=== PATIENT | female | born 1985 | race Caucasian/White ===

== ENCOUNTER 2017-08-02 12:39 | Emergency (ER) | payer OTHER ==
[~2017-08-02] VITALS: Ht 162.6 cm; Wt 63.0 kg
[~2017-08-02 12:39] MED LIST: FLUO20CA35 PO
[2017-08-02 12:50] VITALS: Ht 162.6 cm; Wt 63.0 kg
--- NOTE | 2017-08-02 13:35 | DIAGNOSTIC IMAGING REPORT ---
RIGHT THUMB 3 VIEWS CLINICAL HISTORY: Right thumb injury. FINDINGS: 3 views of the right thumb are obtained. No prior studies are available for comparison at the time of dictation. The skeletal structures are well mineralized. No fracture is seen. The first metacarpophalangeal and interphalangeal joints are maintained. The overlying soft tissues are within normal limits. IMPRESSION: Unremarkable radiographic assessment of the right thumb. Electronically signed by: Joesph Gabriel M.D. 08/02/2017 1:33 PM Dictated Date/Time: 08/02/2017 1:31 PM [facility]
--- NOTE | 2017-08-02 13:52 | EMERGENCY ROOM VISIT NOTE ---
History First contact with patient: 12:52 Chief Complaint: FINGER PAIN Stated Complaint: DISLOCATED THUMB, EXTREME PAIN History of Present Illness The patient is a 31 year old female who presents to the Emergency Room with complaints of an injury to her right thumb. The patient states that she fell last night and believes she dislocated her right thumb. She states that initially, the thumb was pointing in an unusual direction. She states that her boyfriend was able to put the thumb back in place. She has had persistent pain since then. She has had swelling and difficulty moving the thumb. She rates her discomfort an 8/10. She denies any numbness or weakness. She denies any other injuries. Review of Systems A complete 6 point review of systems was reviewed with the patient with pertinent positives and negatives as per history of present illness. All else were negative. Past Medical/Surgical History Medical Problems: (1) No significant active problems Social History Smoking Status: Current Every Day Smoker Drug Use: none Current/Historical Medications Scheduled Fluoxetine (Prozac), 60 MG PO QPM Physical Exam Vital Signs Date Time Temp Pulse Resp B/P (MAP) Pulse Ox O2 Delivery O2 Flow Rate FiO2 08/02/17 14:20 37.0 68 18 102/82 98 08/02/17 14:00 68 18 102/82 98 Room Air 08/02/17 12:50 37.0 81 18 128/89 98 Room Air Physical Exam VITALS: Vitals are noted on the nurse's note and reviewed by myself. Vital signs stable. GENERAL: This is a 31-year-old female, in no acute distress, nondiaphoretic, well-developed well-nourished. SKIN: No abrasions or lacerations MUSCULOSKELETAL: There is mild ecchymosis and swelling to the right first MCP. Decreased range of motion of the right thumb. NEURO: Patient was alert and oriented to person place and time. Normal sensation. Medical Decision & Procedures ER Provider Diagnostic Interpretation: RIGHT THUMB 3 VIEWS CLINICAL HISTORY: Right thumb injury. FINDINGS: 3 views of the right thumb are obtained. No prior studies are available for comparison at the time of dictation. The skeletal structures are well mineralized. No fracture is seen. The first metacarpophalangeal and interphalangeal joints are maintained. The overlying soft tissues are within normal limits. IMPRESSION: Unremarkable radiographic assessment of the right thumb. Medical Decision Differential diagnosis includes fracture, contusion, dislocation, sprain, among others. The patient was evaluated as above. X-ray of the right thumb was obtained and reviewed by radiology and showed no acute findings. Patient likely did dislocate her from yesterday, however it has been fully reduced. It is difficult to evaluate for tendon injury as the patient has decreased range of motion which seems to be secondary to swelling and pain. I did recommend that the patient follow-up with orthopedics if she has persistent difficulty moving the finger. She was placed in a metal finger splint and conservative measures were discussed. She verbalized understanding of my assessment and treatment plan and was discharged home in good condition. Medication Reconcilliation Current Medication List: was personally reviewed by me Blood Pressure Screening Patient's blood pressure: Normal blood pressure Impression Primary Impression: Injury of right thumb Departure Information Dispostion Home / Self-Care Condition GOOD Referrals Gabriel Wallace M.D. (PCP) Carson Rolle MD Patient Instructions My [facility] Additional Instructions You have been treated in the Emergency Department for a finger injury. For pain control, you can use the following [id number] medicines (if >12 yo): - Regular strength (325mg/tab) Tylenol (acetaminophen) 2 tabs every 4-6 hours as needed. Do not exceed 12 tablets in a 24 hour period. Avoid taking more than 4 grams (4000 mg) of Tylenol per day. This includes any other sources of acetaminophen you may take on a regular basis. - Regular strength (200 mg/tab) Advil (ibuprofen) 1-2 tabs every 4-6 hours as needed. Do not exceed a dose of 3200 mg per day. If this is a recent injury (<24 hrs), ice can be applied to the area of pain for the first 3 days to help decrease pain and inflammation. Wear the metal finger splint for the next 3-4 days or as needed for pain in the finger. If you have persistent difficulty moving the thumb, you should follow-up with Dr. Rolle, the hand surgeon for further evaluation of possible tendon injury. Return to the Emergency Department if your current symptoms worsen despite treatment course outlined above, or if you develop any of the following symptoms : intractable pain despite aforementioned treatment course or new onset of numbness or tingling of the fingers. Problem Qualifiers Primary Impression: Injury of right thumb Encounter type: initial encounter Qualified Codes: S69.91XA - Unspecified injury of right wrist, hand and finger(s), initial encounter
[2017-08-02 14:20] VITALS: BP 102/82; PULSE 68; TEMP 37; O2SAT 98
== END 2017-08-02 14:20 | disposition home or self-care (01) ==
LOC: C.EDB 12:40 → C.EDD 14:20
DX: S69.91XA Unspecified injury of right wrist, hand and finger(s), initial encounter (principal); Z79.899 Other long term (current) drug therapy; F17.200 Nicotine dependence, unspecified, uncomplicated; W19.XXXA Unspecified fall, initial encounter

== ENCOUNTER 2017-08-07 10:38 | Emergency (ER) | payer OTHER ==
[~2017-08-07] VITALS: Ht 162.6 cm; Wt 63.8 kg
[2017-08-07 10:43] VITALS: Ht 162.6 cm; Wt 63.8 kg
[2017-08-07] MEDS ORDERED: CLON0.5T3 PO (11:10)
--- NOTE | 2017-08-07 11:16 | DIAGNOSTIC IMAGING REPORT ---
R FINGER(S) MIN 2 VIEWS ROUTINE CLINICAL HISTORY: R thumb reinjury COMPARISON: Right thumb radiographs August 02, 2017. FINDINGS: Alignment of the right thumb is anatomic. No fracture or lesion is present. No erosions are identified. Joint spaces are preserved. IMPRESSION: No acute fracture or dislocation of the right thumb. Electronically signed by: Gera Quinones M.D. 08/07/2017 11:15 AM Dictated Date/Time: 08/07/2017 11:14 AM
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
[2017-08-07 11:36] VITALS: BP 122/73; PULSE 63; TEMP 36.6; O2SAT 100
== END 2017-08-07 11:20 | disposition home or self-care (01) ==
LOC: C.EDB 10:39 → C.EDD 11:20
DX: S63.641A Sprain of metacarpophalangeal joint of right thumb, initial encounter (principal); W22.8XXA Striking against or struck by other objects, initial encounter; Y93.89 Activity, other specified; Y99.8 Other external cause status; F17.200 Nicotine dependence, unspecified, uncomplicated

== ENCOUNTER 2017-08-13 09:31 | Emergency (ER) | payer OTHER ==
[~2017-08-13] VITALS: Ht 162.6 cm; Wt 62.7 kg
[2017-08-13 09:39] VITALS: TEMP 36.6; Ht 162.6 cm; Wt 62.7 kg
--- NOTE | 2017-08-13 10:33 | DIAGNOSTIC IMAGING REPORT ---
CHEST 2 VIEWS ROUTINE CLINICAL HISTORY: 32 years-old Female presenting with cough, aches, sore throat. TECHNIQUE: PA and lateral views of the chest were obtained. COMPARISON: None. FINDINGS: Cardiomediastinal silhouette normal. Lungs and pleural spaces clear. Osseous structures normal. Upper abdomen normal. IMPRESSION: 1. No acute cardiopulmonary disease. Electronically signed by: Neymar Molina M.D. 08/13/2017 10:32 AM Dictated Date/Time: 08/13/2017 10:31 AM
[2017-08-13 11:25] LABS: INFLUENZA B ANTIGEN Neg for Influ B (NEG)
[2017-08-13 11:39] VITALS: BP 111/68; PULSE 68; O2SAT 98
--- NOTE | 2017-08-13 14:37 | EMERGENCY ROOM VISIT NOTE ---
History Report prepared by Edith: Guido Peña Under the Supervision of: Dr. Ever Nunez D.O. First contact with patient: 09:43 Chief Complaint: FLU LIKE SX Stated Complaint: ACHES, SORE THROAT, HEADACHE, STREP OR FLU POSSIBL History of Present Illness The patient is a 32 year old female who presents to the Emergency Room with complaints of constant generalized illness beginning two days ago. Her symptoms include headache, sore throat, body aches, cough, fatigue, chills, and nausea. Her symptoms began with sore throat, followed by fatigue. The patient notes that her friend was recently found to be positive for strep. Her cough produces a clear sputum. She denies abdominal pain, fevers, ear pain, rashes, or vomiting. She works at a [employer]. Source of History: patient Onset: Two days ago Position: other (generalized) Quality: other (illness) Timing: constant Associated Symptoms: + chills, + headache, + sorethroat, + cough (produces clear sputum), + nausea, + fatigue, No fevers, No vomiting, No abdominal pain, No rash Note: Positive: body aches. Negative: ear pain. Review of Systems See HPI for pertinent positives & negatives. A total of 10 systems reviewed and were otherwise negative. Past Medical & Surgical Medical Problems: (1) No significant active problems Family History No pertinent family history stated. Social History Smoking Status: Current Every Day Smoker Drug Use: none Marital Status: Housing Status: lives with family Occupation Status: employed Current/Historical Medications Scheduled Fluoxetine (Prozac), 60 MG PO QPM Scheduled PRN Clonazepam (Klonopin), 1 TAB PO TID PRN for Anxiety Allergies Coded Allergies: Penicillins (Unverified Allergy, Mild, 08/13/17) Amoxicillin (Unverified Allergy, Unknown, ., 08/13/17) Physical Exam Vital Signs Date Time Temp Pulse Resp B/P (MAP) Pulse Ox O2 Delivery O2 Flow Rate FiO2 08/13/17 11:39 68 16 111/68 98 Room Air 08/13/17 09:39 36.6 69 18 126/88 98 Room Air Physical Exam GENERAL: Sitting up in bed, disheveled, dry non-productive cough, no distress, non-toxic EYE EXAM: normal conjunctiva. OROPHARYNX: no exudate, no erythema, lips, buccal mucosa, and tongue normal and mucous membranes are moist NECK: supple, no nuchal rigidity, no adenopathy, non-tender LUNGS: Clear to auscultation. Normal chest wall mechanics HEART: no murmurs, S1 normal and S2 normal ABDOMEN: abdomen soft, non-tender, normo-active bowel sounds, no masses, no rebound or guarding. BACK: Back is symmetrical on inspection and there is no deformity, no midline tenderness, no CVA tenderness. SKIN: no rashes and no bruising UPPER EXTREMITIES: upper extremities are grossly normal. LOWER EXTREMITIES: No pitting edema. NEURO EXAM: Normal sensorium, cranial nerves II-XII grossly intact, normal speech, no gross weakness of arms, no gross weakness of legs. Medical Decision & Procedures ER Provider Diagnostic Interpretation: Radiology results as stated below per my review and the radiologist's interpretation: CHEST 2 VIEWS ROUTINE FINDINGS: Cardiomediastinal silhouette normal. Lungs and pleural spaces clear. Osseous structures normal. Upper abdomen normal. IMPRESSION: 1. No acute cardiopulmonary disease. Electronically signed by: Neymar Molina M.D. 08/13/2017 10:32 AM Laboratory Results Test 08/13/17 10:10 Influenza Type A Antigen Neg for Influ A (NEG) Influenza Type B Antigen Neg for Influ B (NEG) Laboratory results per my review. ED Course ED COURSE: Vital signs were reviewed and appear normal. The patients medical record was reviewed The above diagnostic studies were performed and reviewed. ED treatments and interventions as stated above. 0950: The patient was evaluated in room A9B. A complete history and physical examination was performed. 1150: Upon reevaluation, the patient is resting comfortably. I discussed my findings with the patient and she understands and agrees with the treatment plan. Based on the patients age, coexisting illnesses, exam and lab findings the decision to treat as an outpatient was made. The patient remained stable while under my care. The patient appeared well at the time of discharge. Medical Decision Differential diagnosis includes etiologies such as viral syndrome, tonsillitis, streptococcal pharyngitis, mononucleosis, peritonsillar abscess, retropharyngeal abscess, otitis, pneumonia, influenza, as well as others were entertained. Patient is a otherwise healthy 32-year-old female who presents to ER for cough, chills, muscle aches and a sore throat. Vitals are stable. Afebrile. Influenza and strep are negative. Chest x-ray unremarkable. Based on her symptoms I do believe that this is likely a bronchitis. Patient was discharged follow-up with PCP as an outpatient. She was encouraged hydration along with Tylenol Motrin as needed. Discussed with Pt concerning signs and symptoms to watch out for. Pt was instructed to follow up with their PCP and discussed with the patient their option to return to the ED at anytime for persistent or worsening symptoms. The appropriate anticipatory guidance and out-patient management, including indications for return to the emergency department, were explained at length to the patient and understood. Medication Reconcilliation Current Medication List: was personally reviewed by me Blood Pressure Screening Patient's blood pressure: Normal blood pressure Blood pressure disposition: Did not require urgent referral Impression Primary Impression: Upper respiratory infection Scribe Attestation The scribe's documentation has been prepared under my direction and personally reviewed by me in its entirety. I confirm that the note above accurately reflects all work, treatment, procedures, and medical decision making performed by me. Departure Information Dispostion Home / Self-Care Referrals Gabriel Wallace M.D. (PCP) Forms HOME CARE DOCUMENTATION FORM, IMPORTANT VISIT INFORMATION Patient Instructions ED URI Viral, My [facility] Additional Instructions Please follow up with your primary care doctor with in the next 24 hours. Any worsening of your symptoms, please return to the ED immediately. This includes any fevers greater than 100.4, worsening pain, chest pain, shortness breath, persistent nausea, vomiting, unable to eat or drink, or any other concerning signs or symptoms from your standpoint. Problem Qualifiers Primary Impression: Upper respiratory infection URI type: unspecified URI Qualified Codes: J06.9 - Acute upper respiratory infection, unspecified
== END 2017-08-13 12:09 | disposition home or self-care (01) ==
LOC: UNMERGE 09:33 → MERGE 09:33 → C.EDB 09:33 → C.EDA 12:09
DX: J06.9 Acute upper respiratory infection, unspecified (principal); F17.210 Nicotine dependence, cigarettes, uncomplicated; Z79.899 Other long term (current) drug therapy; Z88.0 Allergy status to penicillin; Z88.1 Allergy status to other antibiotic agents